=== PATIENT | female | born 1965 | race Two or more races ===

== ENCOUNTER 2020-07-19 09:38 | Emergency (ER) | payer BC, SELFPAY ==
[2020-07-19] MEDS ORDERED: LIDOCAINE 1% MPF 5 ML VIAL ONE (10:12)
[2020-07-19] MEDS ORDERED: SMZ./TMP. 800/160 MG TABLET ONE (10:12)
--- NOTE | 2020-07-19 10:18 | ER ---
Nurse's Notes [facility] Name: Ghada Auguste Age: 54 yrs Sex: Female : 1965 Arrival Date: 07/19/2020 Time: 09:41 Bed 6 Private MD: Diagnosis: Cutaneous abscess of face Presentation: 07/19 09:49 Chief complaint: Patient states: abscess to chin X 3 days. Coronavirus screen: At this iw time, the client does not indicate any symptoms associated with coronavirus-19. Ebola Screen: Patient negative for fever greater than or equal to 101.5 degrees Fahrenheit, and additional compatible Ebola Virus Disease symptoms Patient denies exposure to infectious person. Patient denies travel to an Ebola-affected area in the 21 days before illness onset. No symptoms or risks identified at this time. Initial Sepsis Screen: Does the patient meet any 2 criteria? No. Patient's initial sepsis screen is negative. Does the patient have a suspected source of infection? No. Patient's initial sepsis screen is negative. Risk Assessment: Do you want to hurt yourself or someone else? Patient reports no desire to harm self or others. Onset of symptoms was July 16, 2020. 09:49 Method Of Arrival: Ambulatory iw 09:49 Acuity: FRANCISCO 4 iw Historical: - Allergies: 09:51 No Known Allergies; iw - Home Meds: 09:51 None [Active]; iw - PMHx: 09:51 None; iw - PSHx: 09:51 Tubal ligation; iw - Immunization history:: Adult Immunizations not up to date, Last tetanus immunization: unknown. - Social history:: Smoking status: Patient denies any tobacco usage or history of. Screenin:00 Abuse screen: Denies threats or abuse. Nutritional screening: No deficits noted. aa5 Tuberculosis screening: No symptoms or risk factors identified. Fall Risk None identified. Assessment: 10:00 General: Appears comfortable, Behavior is calm, cooperative. Pain: Complains of pain in aa5 chin Pain does not radiate. Pain currently is 8 out of 10 on a pain scale. Quality of pain is described as tender, Is continuous. Neuro: Level of Consciousness is awake, alert, obeys commands, Oriented to person, place, time, situation. Cardiovascular: Patient's skin is warm and dry. Respiratory: Airway is patent Respiratory effort is even, unlabored, Respiratory pattern is regular, symmetrical. GI: No signs and/or symptoms were reported involving the gastrointestinal system. : No signs and/or symptoms were reported regarding the genitourinary system. EENT: No signs and/or symptoms were reported regarding the EENT system. Derm: Skin is pink, warm \T\ dry. Abscess located on chin is dime sized, is hot to touch, is red, is raised. Musculoskeletal: Range of motion: intact in all extremities. Vital Signs: 09:49 BP 148 / 86; Pulse 86; Resp 16; Temp 98.6; Pulse Ox 100% on R/A; Weight 79.38 kg; iw Height 5 ft. 1 in. (154.94 cm); Pain 8/10; 09:49 Body Mass Index 33.07 (79.38 kg, 154.94 cm) iw ED Course: 09:41 Patient arrived in ED. ag5 09:44 Sue Petersen FNP-C is [facility]. kb 09:44 Syed Vera MD is Attending Physician. kb 09:44 Tahira Rubin, RN is Primary Nurse. aa5 09:51 Triage completed. iw 09:51 Arm band placed on. iw 10:00 Patient has correct armband on for positive identification. Bed in low position. Call aa5 light in reach. Side rails up X 1. Administered Medications: 10:01 Drug: Bactrim (160 mg-800 mg (DS) 1 tablet Route: PO; aa5 Outcome: 10:17 Discharge ordered by . kb 10:45 Patient left the ED. aa5 Signatures: Sue Petersen FNP-C FNP-Ckb Williams, Irene, LELIA RN iw Tahira Rubin, LELIA RN aa5 Glenn Chavarria ag5
--- NOTE | 2020-07-19 10:18 | EDPHYS ---
Physician Documentation [facility] Name: Ghada Auguste Age: 54 yrs Sex: Female : 1965 Arrival Date: 07/19/2020 Time: 09:41 Bed 6 Private MD: ED Physician Syed Vera HPI: 07/19 09:59 This 54 yrs old Female presents to ER via Ambulatory with complaints of Insect Bite. kb 09:59 The patient presents with an abscess of the chin. Description: erythematous, swollen, kb warm. Onset: The symptoms/episode began/occurred 3 day(s) ago. Possible cause(s): unknown. Associated signs and symptoms: Pertinent positives: erythema, swelling, Pertinent negatives: discharge, drainage, foreign body sensation, fever, headache, nausea, shortness of breath, vomiting. Modifying factors: the symptoms are alleviated by nothing, the symptoms are aggravated by pressure, squeezing the lesion and expressing the contents, touching. Severity of symptoms: At their worst the symptoms were moderate, in the emergency department the symptoms are unchanged. The patient has not experienced similar symptoms in the past. The patient has not recently seen a physician. Pt reports she was picking el off of a tree 3 days ago and afterwards she developed an abscess to chin. States the swelling and redness have been getting worse. . Historical: - Allergies: 09:51 No Known Allergies; iw - Home Meds: 09:51 None [Active]; iw - PMHx: 09:51 None; iw - PSHx: 09:51 Tubal ligation; iw - Immunization history:: Adult Immunizations not up to date, Last tetanus immunization: unknown. - Social history:: Smoking status: Patient denies any tobacco usage or history of. ROS: 09:57 Constitutional: Negative for fever, chills, and weight loss, Abdomen/GI: Negative for kb abdominal pain, nausea, vomiting, diarrhea, and constipation, MS/Extremity: Negative for injury and deformity, Neuro: Negative for headache, weakness, numbness, tingling, and seizure. 09:57 Skin: Positive for abscess, of the chin. Exam: 09:57 Constitutional: This is a well developed, well nourished patient who is awake, alert, kb and in no acute distress. Head/Face: Normocephalic, atraumatic. MS/ Extremity: Pulses equal, no cyanosis. Neurovascular intact. Full, normal range of motion. Neuro: Awake and alert, GCS 15, oriented to person, place, time, and situation. Cranial nerves II-XII grossly intact. Motor strength 5/5 in all extremities. Sensory grossly intact. Cerebellar exam normal. Normal gait. 09:57 Respiratory: the patient does not display signs of respiratory distress, Respirations: normal. 09:57 Skin: abscess, that is moderate sized, of the chin, with fluctuance, that is mild, with surrounding cellulitis, that is mild. Vital Signs: 09:49 BP 148 / 86; Pulse 86; Resp 16; Temp 98.6; Pulse Ox 100% on R/A; Weight 79.38 kg; iw Height 5 ft. 1 in. (154.94 cm); Pain 8/10; 09:49 Body Mass Index 33.07 (79.38 kg, 154.94 cm) iw Procedures: 10:17 I \T\ D: Incision and drainage was performed for an abscess of the chin Prepped with kb Betadine, Anesthetized with 0.5 ml's 1% Lidocaine. Incised with #11 blade. Drained small amount purulent fluid. Dressing: sterile 4x4 gauze, the patient tolerated the procedure well. MDM: 09:44 Patient medically screened. kb 09:59 Data reviewed: vital signs, nurses notes. Data interpreted: Pulse oximetry: on room air kb is 100 %. Interpretation: normal. 10:17 Counseling: I had a detailed discussion with the patient and/or guardian regarding: the kb historical points, exam findings, and any diagnostic results supporting the discharge/admit diagnosis, the need for outpatient follow up, a family practitioner, to return to the emergency department if symptoms worsen or persist or if there are any questions or concerns that arise at home. 07/19 09:52 Order name: I\T\D Setup; Complete Time: 09:54 kb Administered Medications: 10:01 Drug: Bactrim (160 mg-800 mg (DS) 1 tablet Route: PO; aa5 Disposition: 07/19/20 10:17 Discharged to Home. Impression: Cutaneous abscess of face. - Condition is Stable. - Discharge Instructions: Skin Abscess, [id number]. - Prescriptions for Bactrim DS 800- 160 mg Oral Tablet - take 1 tablet by ORAL route every 12 hours for 10 days; 20 tablet. - Medication Reconciliation Form, Thank You Letter, Antibiotic Education, Prescription Opioid Use form. - Follow up: Emergency Department; When: As needed; Reason: Worsening of condition. Follow up: Private Physician; When: 2 - 3 days; Reason: Recheck today's complaints, Continuance of care, Re-evaluation by your physician. Addendum: 07/24/2020 20:58 Co-signature as Attending Physician, Syed Vera MD Did not see or evaluate patient. p s1 Signature for administrative purposes. . Signatures: Sue Petersen, BUSINESS SUPPORT MANAGER-C BUSINESS SUPPORT MANAGER-Ckb Beatriz Hoyt, RN RN iw Tahira Rubin, RN RN aa5 Syed Vera MD MD ps1 Corrections: (The following items were deleted from the chart) 07/19 10:45 10:17 07/19/2020 10:17 Discharged to Home. Impression: Cutaneous abscess of face. aa5 Condition is Stable. Forms are Medication Reconciliation Form, Thank You Letter, Antibiotic Education, Prescription Opioid Use. Follow up: Emergency Department; When: As needed; Reason: Worsening of condition. Follow up: Private Physician; When: 2 - 3 days; Reason: Recheck today's complaints, Continuance of care, Re-evaluation by your physician. kb
--- OUTSIDE RECORDS SUMMARY | 2020-07-19 11:05 | XMS REPORT | Continuity of Care Document ---
:1965 Author Organization [facility] t Address [address] [place] [address] [place] [address] Care Team Providers Name Role Phone Unavailable Unavailable Unavailable Problems This patient has no known problems. Allergies, Adverse Reactions, Alerts This patient has no known allergies or adverse reactions. Medications This patient has no known medications. Procedures This patient has no known procedures. Results This patient has no known results.
[2020-07-19 12:43] VITALS: BP 148/86; TEMP 98.6; O2SAT 100
== END 2020-07-19 10:45 | disposition home or self-care (01) ==
LOC: ER 09:38
PROC: 0J910ZZ Drainage of Face Subcutaneous Tissue and Fascia, Open Approach (ICD-10-PCS; principal; 2020-07-19)
DX: L02.01 Cutaneous abscess of face (principal)
CPT/HCPCS: 99282

== ENCOUNTER 2023-12-13 13:24 | Emergency (ER) | payer OTHER, SELFPAY ==
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
--- NOTE | 2023-12-13 13:41 | EDPHYS ---
Physician Documentation [facility] Name: Ghada Auguste Age: 58 yrs Sex: Female : 1965 Arrival Date: 12/13/2023 Time: 13:24 Bed IW2 Private MD: ED Physician Nasim Becerril HPI: 12/12 13:45 This 58 yrs old [place] Female presents to ER via Ambulatory with complaints of Rash, sb4 Eye Swelling. 13:45 rash on torso, groin, and back for several months now. left eyelid redness/swelling x 1 sb4 week. has been using OTC medications for the rash, has waxed and waned. has not seen PCP or dermatology. states eyelid was much more swollen this morning, is itchy, mildly painful, some discharge in the mornings. Historical: - Allergies: 13:32 Banana; ll1 - PMHx: 13:32 None; ll1 - PSHx: 13:32 hysterectomy; ll1 - Immunization history:: Adult Immunizations up to date. - Infectious Disease History:: Denies. - Social history:: Smoking status: Patient denies any tobacco usage or history of. ROS: 13:45 Constitutional: Negative for fever, chills, and weight loss, sb4 13:45 Eyes: Positive for swelling, 13:45 Skin: Positive for rash, 13:45 All other systems are negative, Exam: 13:45 Constitutional: This is a well developed, well nourished patient who is awake, alert, sb4 and in no acute distress. Head/Face: Normocephalic, atraumatic. ENT: Mucous membranes moist. MS/ Extremity: Pulses equal, no cyanosis. Neurovascular intact. Full, normal range of motion. Neuro: Awake and alert, GCS 15, oriented to person, place, time, and situation. Motor strength 5/5 in all extremities. Sensory grossly intact. 13:45 Eyes: Periorbital structures: appear normal, Pupils: equal, round, and reactive to light and accomodation, Extraocular movements: intact throughout, Lids and lashes: edema, of the left eye, erythema, 13:45 Skin: psoriasis, on the abdominal wall, back, groin, postauricular, Vital Signs: 13:32 BP 155 / 98; Pulse 84; Resp 17; Temp 97.6; Pulse Ox 100% ; Weight 68.49 kg; Height 5 ll1 ft. 1 in. ; Pain 0/10; 13:32 Body Mass Index 28.53 (68.49 kg, 154.94 cm) ll1 13:32 Pain Scale: Adult ll1 MDM: 13:27 Patient medically screened. sb4 13:47 Data reviewed: vital signs, nurses notes, and as a result, I will discharge patient. sb4 Counseling: I had a detailed discussion with the patient and/or guardian regarding the historical points, exam findings, and any diagnostic results supporting the discharge/admit diagnosis, the need for outpatient follow up, a industrial refrigeration mechanic, an opthalmologist, to return to the emergency department if symptoms worsen or persist or if there are any questions or concerns that arise at home. Administered Medications: No medications were administered Disposition: 13:54 Co-signature as Attending Physician, Nasim Becerril MD I reviewed the patient's care rt provided by the Advanced Practice Provider and agree with the diagnosis and treatment plan. Disposition Summary: 12/13/23 13:40 Discharge Ordered Notes: Location: Home sb4 Problem: an ongoing problem sb4 Symptoms: are unchanged sb4 Condition: Stable sb4 Diagnosis - Psoriasis, unspecified sb4 - Preseptal cellulitis sb4 Followup: sb4 - With: Private Physician - When: As needed - Reason: Further diagnostic work-up, Recheck today's complaints, Re-evaluation by your physician Discharge Instructions: - Discharge Summary Sheet sb4 - Blepharitis sb4 - Psoriasis, [id number] sb4 Forms: - Thank You Letter sb4 - Antibiotic Education sb4 - Patient Portal Instructions sb4 - Leadership Thank You Letter sb4 Prescriptions: - fluticasone propionate 0.05 % Topical cream - apply 1 application TOPICAL route daily; 1 Applicator; Refills: 0, Product sb4 Selection Permitted - Cephalexin 500 mg Oral Capsule - take 1 capsule ORAL route every 8 hours for 10 days; 30 capsule; Refills: 0, sb4 Product Selection Permitted - Vigamox 0.5 % Ophthalmic Drops - instill 1 drop OPHTHALMIC route every 8 hours for 7 days; 5 milliliter; sb4 Refills: 0, Product Selection Permitted Signatures: Agustina Hu RN RN ll1 Jenelle Polk PA-C PA-C sb4 [place], Nasim, MD MD rt
--- NOTE | 2023-12-13 13:41 | ER ---
[facility] Name: Ghada August[facility] Age: 58 yrs Sex: Female : 1965 Arrival Date: 12/13/2023 Time: 13:24 Bed IW2 Private MD: Diagnosis: Psoriasis, unspecified;Preseptal cellulitis Presentation: 12/12 13:32 Chief complaint: Patient states: Upper eyelid swelling to L eye for 1 week. Rash to ll1 abdomen/back, pelvic area for 3-4 months. No fever. Coronavirus screen: Client denies travel out of the [place] in the last 14 days. At this time, the client does not indicate any symptoms associated with coronavirus-19. Ebola Screen: Patient denies travel to an Ebola-affected area in the 21 days before illness onset. Initial Sepsis Screen: Does the patient meet any 2 criteria? No. Patient's initial sepsis screen is negative. Does the patient have a suspected source of infection? No. Patient's initial sepsis screen is negative. Risk Assessment: Do you want to hurt yourself or someone else? Patient reports no desire to harm self or others. Onset of symptoms was August 26, 2023. 13:32 Method Of Arrival: Ambulatory ll1 13:32 Acuity: FRANCISCO 4 ll1 Triage Assessment: 13:34 General: Appears uncomfortable, Behavior is calm, cooperative, appropriate for age. ll1 Pain: Denies pain. EENT: Reports pain, swelling to L upper eyelid. Derm: Reports rash to abdomen/trunk and pelvic area. Historical: - Allergies: 13:32 Banana; ll1 - PMHx: 13:32 None; ll1 - PSHx: 13:32 hysterectomy; ll1 - Immunization history:: Adult Immunizations up to date. - Infectious Disease History:: Denies. - Social history:: Smoking status: Patient denies any tobacco usage or history of. Screenin:48 [facility] ED Fall Risk Assessment (Adult) History of falling in the last 3 months, ll1 including since admission No falls in past 3 months (0 pts) Confusion or Disorientation No (0 pts) Intoxicated or Sedated No (0 pts) Impaired Gait No (0 pts) Mobility Assist Device Used No (0 pt) Altered Elimination No (0 pt) Score/Fall Risk Level 0 - 2 = Low Risk Maintained a safe environment. Abuse screen: Denies threats or abuse. Nutritional screening: No deficits noted. Tuberculosis screening: No symptoms or risk factors identified. Assessment: 13:48 Reassessment: No changes from previously documented assessment. Patient and/or family ll1 updated on plan of care and expected duration. Pain level reassessed. Patient is alert, oriented x 3, equal unlabored respirations, skin warm/dry/pink. Vital Signs: 13:32 BP 155 / 98; Pulse 84; Resp 17; Temp 97.6; Pulse Ox 100% ; Weight 68.49 kg; Height 5 ll1 ft. 1 in. ; Pain 0/10; 13:32 Body Mass Index 28.53 (68.49 kg, 154.94 cm) ll1 13:32 Pain Scale: Adult ll1 ED Course: 13:27 Patient arrived in ED. rg4 13:27 [facility] sb4 13:27 Nasim Becerril MD is Attending Physician. sb4 13:32 Arm band placed on. ll1 13:34 Triage completed. ll1 13:48 No provider procedures requiring assistance completed. Patient did not have IV access ll1 during this emergency room visit. 13:49 Patient has correct armband on for positive identification. Provided Education on: ll1 finish all prescribed antibiotics. Administered Medications: No medications were administered Medication: 13:49 VIS not applicable for this client. ll1 Outcome: 13:40 Discharge ordered by . sb4 13:48 Discharged to home ambulatory, ll1 13:48 Condition: stable 13:48 Discharge instructions given to patient, family, Instructed on discharge instructions, follow up and referral plans. medication usage, Demonstrated understanding of instructions, follow-up care, medications, Prescriptions given X 3, 13:49 Patient left the ED. ll1 Signatures: Bel Levy rg4 Agustina Hu RN RN ll1 Jenelle Polk PA-C PA-C sb4
[2023-12-13 14:27] VITALS: BP 155/98; TEMP 97.6; O2SAT 100
== END 2023-12-13 13:49 | disposition home or self-care (01) ==
LOC: ER 13:24
DX: L40.9 Psoriasis, unspecified (principal); L03.213 Periorbital cellulitis; Z91.018 Allergy to other foods
CPT/HCPCS: 99283

== ENCOUNTER 2024-09-18 12:40 | Emergency (ER) | payer OTHER ==
--- NOTE | 2024-09-18 13:09 | EDPHYS ---
Physician Documentation [facility] Name: Ghada Auguste Age: 58 yrs Sex: Female : 1965 Arrival Date: 09/18/2024 Time: 12:40 Bed 4 Private MD: ED Physician Nasim Becerril HPI: 09/18 13:06 This 58 yrs old [place] Female presents to ER via EMS with complaints of Chemical Burn.kb 13:06 Pt is a 58 year old female who presents for chemical burn to top of left foot that kb occurred just wax specialist. States she was cleaning with sodium hydroxide, it spilled and went through her shoe causing the burn. Denies any other injuries. States the area was flushed with water and it is no longer burning. . Historical: - Allergies: 12:46 Banana; ko1 - PSHx: 12:46 hysterectomy; ko1 - Immunization history:: Adult Immunizations up to date. - Infectious Disease History:: Denies. - Social history:: Smoking status: Patient denies any tobacco usage or history of. ROS: 13:06 Constitutional: As per HPI kb Exam: 13:06 Constitutional: This is a well developed, well nourished patient who is awake, alert, kb and in no acute distress. Head/Face: Normocephalic, atraumatic. Cardiovascular: Regular rate Respiratory: Respirations even and unlabored. No increased work of breathing. Talking in full sentences MS/ Extremity: Pulses equal, no cyanosis. Neurovascular intact. Full, normal range of motion. Neuro: Awake and alert, GCS 15, oriented to person, place, time, and situation. 13:06 Skin: injury, burn(s), small, dime sized burn to top of left foot. No active bleeding. , Vital Signs: 12:43 BP 151 / 76; Pulse 75; Resp 15; Temp 97; Pulse Ox 98% ; ko1 13:38 BP 138 / 74; Pulse 72; Resp 16; Pulse Ox 99% ; ko1 MDM: 12:42 Medical Screening Exam initiated kb 13:08 Differential diagnosis: 1st degree amin, chemical burn, abrasion. Data reviewed: vital kb signs, nurses notes. Historians other than the Patient: EMS: [facility]. Counseling: I had a detailed discussion with the patient and/or guardian regarding the historical points, exam findings, and any diagnostic results supporting the discharge/admit diagnosis, the need for outpatient follow up, a family practitioner, to return to the emergency department if symptoms worsen or persist or if there are any questions or concerns that arise at home. 13:09 I considered the following discharge prescriptions or medication management in the emergency department I discussed and recommended Over The Counter medications, Antibiotics: At this time antibiotics are not recommended. ED course: Educated to keep clean and monitor for signs of infection. No erythema, swelling, drainage at this time. 09/18 13:05 Order name: Wound Care: flush, clean and dress; Complete Time: 13:23 kb Administered Medications: 13:30 Drug: Boostrix Tdap IM 0.5 ml IM once; as a single dose Route: IM; Site: left deltoid; db 13:30 Follow up: Response: (VIS) Vaccine information sheet provided today. Questions and/or db concerns addressed. VIS edition date: Mar 31, 2021.; No adverse reaction 13:43 Follow up: Response: (VIS) Vaccine information sheet provided today. Questions and/or ko1 concerns addressed. VIS edition date: Mar 31, 2021.; No adverse reaction; Medication administered at discharge. Disposition: 15:47 Co-signature as Attending Physician, Nasim Becerril MD I reviewed the patient's care rt provided by the Advanced Practice Provider and agree with the diagnosis and treatment plan. Disposition Summary: 09/18/24 13:09 Discharge Ordered Notes: Location: Home Condition: Stable kb Diagnosis - Burn to left foot due to sodium hydroxide kb Followup: kb - With: Emergency Department - When: As needed - Reason: Worsening of condition Followup: kb - With: Private Physician - When: 2 - 3 days - Reason: Recheck today's complaints, Continuance of care, Re-evaluation by your physician Discharge Instructions: - Discharge Summary Sheet kb - Chemical Burn, Adult, [id number] kb Forms: - Medication Reconciliation Form kb - Antibiotic Education kb - Prescription Opioid Use kb - Patient Portal Instructions kb - Leadership Thank You Letter kb - Work release form ko1 Signatures: Sue Petersen FNP-C FNP-Ckb Oliver, Kathy, RN RN ko1 Rachael Dillon RN RN Nasim Dias MD MD rt
--- NOTE | 2024-09-18 13:09 | ER ---
Nurse's Notes [facility] Name: Ghada Auguste Age: 58 yrs Sex: Female : 1965 Arrival Date: 09/18/2024 Time: 12:40 Bed 4 Private MD: Diagnosis: Burn to left foot due to sodium hydroxide Presentation: 09/18 12:43 Chief complaint: EMS states: patient was at work and spilled some sodium hydroxide on ko1 her left foot causing it to blister. Coronavirus screen: At this time, the client does not indicate any symptoms associated with coronavirus-19. Ebola Screen: No symptoms or risks identified at this time. Initial Sepsis Screen: Does the patient meet any 2 criteria? No. Patient's initial sepsis screen is negative. Does the patient have a suspected source of infection? No. Patient's initial sepsis screen is negative. Risk Assessment: Do you want to hurt yourself or someone else? Patient reports no desire to harm self or others. Onset of symptoms was September 18, 2024. Care prior to arrival: Medication(s) given: Tylenol, 975 mg po rinsed with water for 15 minutes. 12:43 Method Of Arrival: EMS: [facility] ko1 12:43 Acuity: FRANCISCO 4 ko1 Triage Assessment: 12:46 General: Appears in no apparent distress. Behavior is calm, cooperative, appropriate ko1 for age. Pain: Complains of pain in dorsum of left foot. Respiratory: Airway is patent Trachea midline Respiratory effort is even, unlabored, Respiratory pattern is regular, symmetrical. Injury Description: Burn was sustained less than 30 minutes ago. Patient sustained second-degree burn(s) to dorsum of left foot. Historical: - Allergies: 12:46 Banana; ko1 - PSHx: 12:46 hysterectomy; ko1 - Immunization history:: Adult Immunizations up to date. - Infectious Disease History:: Denies. - Social history:: Smoking status: Patient denies any tobacco usage or history of. Screenin:38 [facility] ED Fall Risk Assessment (Adult) History of falling in the last 3 months, ko1 including since admission No falls in past 3 months (0 pts) Confusion or Disorientation No (0 pts) Intoxicated or Sedated No (0 pts) Impaired Gait No (0 pts) Mobility Assist Device Used No (0 pt) Altered Elimination No (0 pt) Score/Fall Risk Level 0 - 2 = Low Risk Oriented to surroundings, Maintained a safe environment, Educated pt \T\ family on fall prevention, incl call for assistance when getting out of bed, Assessed \T\ reinforced patient's understanding of fall precautions, Provided non-skid footwear, Hourly rounding (assess needs \T\ fall precautionary measures) done. Abuse screen: Denies threats or abuse. Denies injuries from another. Nutritional screening: No deficits noted. Tuberculosis screening: No symptoms or risk factors identified. Assessment: 13:00 Derm: Wound noted dorsum of left foot. ko1 Vital Signs: 12:43 BP 151 / 76; Pulse 75; Resp 15; Temp 97; Pulse Ox 98% ; ko1 13:38 BP 138 / 74; Pulse 72; Resp 16; Pulse Ox 99% ; ko1 ED Course: 12:41 Patient arrived in ED. ko1 12:42 Rosalia Robertson RN is Primary Nurse. ko1 12:42 Sue Petersen FNP-C is PHCP. rt 12:42 Nasim Becerril MD is Attending Physician. rt 12:46 Triage completed. ko1 12:46 Arm band placed on right wrist. Patient placed in an exam room, on a stretcher, on ko1 pulse oximetry, Patient notified of wait time. 13:38 Patient has correct armband on for positive identification. Allergy band placed. Bed in ko1 low position. Call light in reach. Side rails up X 1. Provided Education on: wound care. Pulse ox on. NIBP on. Door closed. Noise minimized. Lights dimmed. Warm blanket given. Pillow given. 13:38 No provider procedures requiring assistance completed. Patient did not have IV access ko1 during this emergency room visit. Dressings: Kerlix X 1; dorsum of left foot non-adherent dressing x 1 dorsum of left foot 4X4s X 1; dorsum of left foot. Irrigation of burn on dorsum of left foot irrigated with normal saline Patient tolerated well. Wound care: was cleaned with Hibiclens, dressed with Patient tolerated well. Administered Medications: 13:30 Drug: Boostrix Tdap IM 0.5 ml IM once; as a single dose Route: IM; Site: left deltoid; db 13:30 Follow up: Response: (VIS) Vaccine information sheet provided today. Questions and/or db concerns addressed. VIS edition date: Mar 31, 2021.; No adverse reaction 13:43 Follow up: Response: (VIS) Vaccine information sheet provided today. Questions and/or ko1 concerns addressed. VIS edition date: Mar 31, 2021.; No adverse reaction; Medication administered at discharge. Medication: 13:38 Vaccine Information Statement (VIS) provided today. Questions and/or concerns ko1 addressed. VIS edition date: 2016. Outcome: 13:09 Discharge ordered by . keegan 13:38 Discharged to home ambulatory, ko1 13:38 Condition: stable 13:38 Discharge instructions given to patient, Instructed on discharge instructions, follow up and referral plans. wound care, Demonstrated understanding of instructions, follow-up care, wound care, 13:43 Patient left the ED. ko1 Signatures: Sue Petersen, LOOM BLOWER-C LOOM BLOWER-CkRosalia Carrillo, RN RN ko1 Rachael Dillon, RN LELIA db Nasim Becerril MD MD rt
[2024-09-18] MEDS ORDERED: TDAP (DIPHTH,PERTUSS(ACELL),TET VAC) 0.5 ML VIAL IMVAC ONE (13:17)
[2024-09-18 15:28] VITALS: TEMP 97
[2024-09-18 15:29] VITALS: BP 138/74; O2SAT 99
== END 2024-09-18 13:43 | disposition home or self-care (01) ==
LOC: ER 12:40
DX: T25.422A Corrosion of unspecified degree of left foot, initial encounter (principal)
CPT/HCPCS: 96372; 99284